=== PATIENT | male | born 1945 | race Caucasian/White ===

== ENCOUNTER 2017-05-09 10:10 | Emergency (ER) | payer OTHER ==
[~2017-05-09 10:10] MED LIST: ASPI81 PO; CLOP75 PO; CORE25TA PO; DIOV40TA PO; LORTA5 PO; PROP1TAB PO; PROT40TA PO; RANI150T PO; TAMS0.4C67 PO; ZOCO80TA PO
[2017-05-09 10:21] VITALS: BP 162/78; PULSE 90; RESP 16; TEMP 97.5
--- NOTE | 2017-05-09 10:49 | RADRPT ---
EXAM DATE/TIME: 05/09/2017 10:34 [place] COMPARISON: No previous studies available for comparison. INDICATIONS : Chest pain. MEDICAL HISTORY : Hypertension. SURGICAL HISTORY : Pacemaker. ENCOUNTER: Initial ACUITY: 1 day PAIN SCORE: 3/10 LOCATION: Bilateral chest FINDINGS: PA and lateral views of the chest demonstrate the lungs to be symmetrically aerated without evidence of mass, infiltrate or effusion. The cardiomediastinal contours are unremarkable. Osseous structure s are intact. Left-sided pacemaker in place. CONCLUSION: No acute disease. Jam Mckenna MD on May 09, 2017 at 10:46 Board Certified Radiologist. This report was verified electronically.
[2017-05-09 11:21] LABS: AUTOMATED NEUTROPHIL # 7.9 TH/MM3 (1.8-7.7); BASOPHIL % 0.2 % (0.0-2.0); EOSINOPHIL % 0.5 % (0.0-4.0); HEMATOCRIT 42.9 % (39.0-51.0); HEMOGLOBIN 14.7 GM/DL (13.0-17.0); LYMPH % 10.5 % (9.0-44.0); MEAN CELL VOLUME 92.8 FL (80.0-100.0); MEAN CORPUSCULAR HEMOGLOBIN 31.9 PG (27.0-34.0); MEAN CORPUSCULAR HGB CONC 34.3 % (32.0-36.0); MEAN PLATELET VOLUME 10.7 FL (7.0-11.0); MONO % 7.1 % (0.0-8.0); MONOCYTE # 0.7 TH/MM3 (0-0.9); NEUT % 81.7 % (16.0-70.0); PLATELET COUNT 116 TH/MM3 (150-450); RED BLOOD COUNT 4.62 MIL/MM3 (4.50-5.90); WHITE BLOOD COUNT 9.7 TH/MM3 (4.0-11.0)
[2017-05-09 11:32] LABS: INTERNATIONAL NORMALIZED RATIO 1.1 RATIO; PROTHROMBIN TIME - PATIENT 10.7 SEC (9.8-11.6)
[2017-05-09 11:41] LABS: BICARBONATE 27.2 MEQ/L (21.0-32.0); BLOOD UREA NITROGEN 17 MG/DL (7-18); CALCIUM 8.1 MG/DL (8.5-10.1); CHLORIDE 107 MEQ/L (98-107); GLOMERULAR FILTRATION RATE 73 ML/MIN (>89); GLUCOSE,RANDOM 129 MG/DL (74-106); SODIUM (NA) 142 MEQ/L (136-145)
[2017-05-09 11:44] LABS: TROPONIN I LESS THAN 0.02 NG/ML (0.02-0.05)
--- NOTE | 2017-05-09 14:42 | EKG ---
Date Performed: 05/09/2017 Time Performed: 10:44:50 PTAGE: 71 years EKG: Sinus rhythm LEFT ANTERIOR FASCICULAR BLOCK NONSPECIFIC INTRAVENTRICULAR CONDUCTION DELAY POOR R WAVE PROGRESSION ABNORMAL ECG PREVIOUS TRACING : 03/30/2011 06.22 Compared to previous tracing, heart rate has increased, QRS duration has increased slightly. DOCTOR: Wayne Newman Interpretating Date/Time 05/09/2017 14:42:46
== END 2017-05-09 16:15 | disposition left against medical advice (07) ==
LOC: NED 10:10
DX: Z53.21 Procedure and treatment not carried out due to patient leaving prior to being seen by health care provider (principal); I10 Essential (primary) hypertension; R94.31 Abnormal electrocardiogram [ECG] [EKG]; Z95.0 Presence of cardiac pacemaker
CPT/HCPCS: 71046; 80048; 82550; 82552; 84484; 85025; 85610; 85730; 93005; 99281